=== PATIENT | female | born 1960 | race Caucasian/White ===

== ENCOUNTER → 2016-10-21 | Outpatient (CLI) | payer BC ==
--- NOTE | 2016-10-21 16:23 | DIAGNOSTIC IMAGING REPORT ---
CHEST 2 VIEWS ROUTINE CLINICAL HISTORY: ACUTE RIGHT HIP PAIN HISTORY OF PNEUMOTHORAX COMPARISON STUDY: No previous studies for comparison. FINDINGS: The cardiac and mediastinal contours are normal. There is no evidence of focal pulmonary consolidation. There is no evidence of failure. No pleural effusions are visualized.[ No pneumothorax is visualized. There is a 6 mm sclerotic lesion within the left ninth rib laterally. IMPRESSION: No active disease in the chest. Electronically signed by: Neil Castillo M.D. 10/21/2016 4:22 PM Dictated Date/Time: 10/21/2016 4:21 PM
== END | disposition home or self-care (01) ==
LOC: C.RAD1850 16:06
PROVIDERS: ATTEND Family Medicine
DX: M25.551 Pain in right hip (principal); J93.9 Pneumothorax, unspecified

== ENCOUNTER → 2016-11-05 | Outpatient (CLI) | payer BC | END | disposition home or self-care (01) | LOC: C.PAPS 14:12 | PROVIDERS: ATTEND Obstetrics & Gynecology | DX: Z01.419 Encounter for gynecological examination (general) (routine) without abnormal findings (principal); Z11.51 Encounter for screening for human papillomavirus (HPV) ==

== ENCOUNTER → 2017-01-20 | Outpatient (CLI) | payer BC ==
--- NOTE | 2017-01-20 16:41 | DIAGNOSTIC IMAGING REPORT ---
L KNEE 1 OR 2 VIEWS ROUTINE CLINICAL HISTORY: LT KNEE PAIN pain COMPARISON: None. DISCUSSION: The bones and joint spaces appear intact. There is no evidence of fracture, dislocation or bony disease. There is no evidence for soft tissue swelling. Possible small osteochondral defect of the mid patellar surface. IMPRESSION: Possible small osteochondral defect mid patellar surface. Study is otherwise negative. The above report was generated using voice recognition software. It may contain grammatical, syntax or spelling errors. Electronically signed by: Hi Pulliam M.D. 01/20/2017 4:39 PM Dictated Date/Time: 01/20/2017 4:39 PM
== END | disposition home or self-care (01) ==
LOC: C.RAD1850 16:27
PROVIDERS: ATTEND Family Medicine
DX: M25.562 Pain in left knee (principal)

== ENCOUNTER → 2017-03-18 | Outpatient (CLI) | payer OTHER ==
--- NOTE | 2017-03-19 13:23 | MAMMOGRAPHY REPORT ---
BILATERAL DIGITAL SCREENING MAMMOGRAM TOMOSYNTHESIS WITH CAD: 03/18/2017 CLINICAL HISTORY: Patient presents for routine screening. S/P bilateral augmentation. TECHNIQUE: Breast tomosynthesis in addition to standard 2D mammography was performed. Current study was also evaluated with a Computer Aided Detection (CAD) system. COMPARISON: Comparison is made to exams dated: 01/31/2016 mammogram - [facility], mammogram, 04/18/2012 mammogram, 03/17/2011 mammogram, and 01/28/2010 mammogram - [facility]. BREAST COMPOSITION: There are scattered areas of fibroglandular density in both breasts. FINDINGS: No suspicious masses, calcifications, or areas of architectural distortion are noted in ei ther breast. There has been no significant interval change compared to prior exams. Bilateral subpec sirisha saline implants are intact. IMPRESSION: ACR BI-RADS CATEGORY 2: BENIGN There is no mammographic evidence of malignancy. A 1 year screening mammogram is recommended. The pa tient will receive written notification of the results. Approximately 10% of breast cancers are not detected with mammography. A negative mammographic report should not delay biopsy if a clinically suggestive mass is present. Fatou Sethi M.D. /:03/18/2017 13:42:08 Narcotics Investigator: Ruma PINEDA)(Karla), [facility] letter sent: Normal 1/2 BI-RADS Code: ACR BI-RADS Category 2: Benign
== END | disposition home or self-care (01) ==
LOC: C.MAMM 12:25
PROVIDERS: ATTEND Obstetrics & Gynecology
DX: Z12.31 Encounter for screening mammogram for malignant neoplasm of breast (principal); Z98.82 Breast implant status

== ENCOUNTER → 2017-07-10 | Outpatient (CLI) | payer OTHER ==
--- NOTE | 2017-07-10 13:49 | DIAGNOSTIC IMAGING REPORT ---
LEFT HAND 3 VIEWS HISTORY: Crush injury. Left index finger pain. COMPARISON: None. FINDINGS: No acute fracture or dislocation within the left hand. A 5 mm lucent focus within the distal shaft of the radius. This is a benign appearance. Soft tissue swelling within the index finger. Old, healed third metacarpal fracture. No radiopaque foreign bodies. IMPRESSION: Soft tissue swelling within the index finger. No acute fracture or dislocation. Electronically signed by: Gallo Mckeon M.D. 07/10/2017 1:48 PM Dictated Date/Time: 07/10/2017 1:45 PM
== END | disposition home or self-care (01) ==
LOC: C.RAD 13:22
PROVIDERS: ATTEND Nurse Practitioner
DX: S67.191A Crushing injury of left index finger, initial encounter (principal); X58.XXXA Exposure to other specified factors, initial encounter